=== PATIENT | male | born 1980 | race Caucasian/White ===

== ENCOUNTER 2023-03-08 08:52 | Outpatient (CLI) | payer BC, SELFPAY ==
--- NOTE | ~2023-03-08 | US_ITS ---
US thyroid INDICATION: Thyroid disorder TECHNIQUE: Real-time sonographic images of the thyroid gland were obtained. COMPARISON: No prior studies for comparison. FINDINGS: The right thyroid lobe measures 5.8 x 2.4 x 2.2 cm. The left thyroid lobe measures 4.8 x 2 .5 x 2.4 cm. There is heterogeneous echotexture and echogenicity throughout the thyroid gland. No dis crete nodules identified. Increased bilateral vascular flow is present. IMPRESSION: 1. Enlarged heterogeneous thyroid gland with increased vascularity. No discrete mass identified. Reviewed, dictated and finalized at location L. IMPRESSION: 1. Enlarged heterogeneous thyroid gland with increased vascularity. No discret e mass identified.
== END 2023-03-08 08:53 ==
PROVIDERS: PCP Clinical Nurse Specialist; Visit Provider Clinical Nurse Specialist
DX: E07.9 Disorder of thyroid, unspecified (principal); E07.89 Other specified disorders of thyroid
CPT/HCPCS: 76536